=== PATIENT | female | born 1940 | race Two or more races ===

== ENCOUNTER 2020-01-06 13:50 | Inpatient (IN) | payer OTHER ==
[2020-01-06] VITALS (18 sets, daily range): BP systolic 111–147; BP diastolic 55–91
[~2020-01-06] VITALS: Ht 30.5 cm; Wt 118.4 kg
--- NOTE | 2020-01-06 13:44 | NUR ---
"stemi" pt direct transfer to [facility] received pt from [facility] transport. pt on monitor and O2, no IV drips patient denies pain and/or discomfort. no signs of apparent distress, denies n/v. pt transferred to cathlab table without incident.
[2020-01-06] MEDS ORDERED: LIDOCAINE 2%HCL (LOCAL ANESTH.) INJ 20ML MDV ONE (13:53)
[2020-01-06] MEDS ORDERED: IODIXANOL 320MG/ML 100ML BTL IV ONE (13:53)
[2020-01-06] MEDS ORDERED: ADENOSINE 6 MG/2 ML INJ IV ONE (14:00)
[2020-01-06] MEDS ORDERED: ANGIOMAX 250 MG VIAL IV ONE ×2 (14:00→14:59)
[2020-01-06] MEDS ORDERED: MIDAZOLAM HCL 1MG/1ML-2 ML VIAL ONE (14:00)
[2020-01-06] MEDS ORDERED: fentaNYL CITRATE 100 MCG/2 ML VL ONE (14:00)
[2020-01-06] MEDS ORDERED: SODIUM CHL 0.9% 50 ML ONE ×2 (14:00→14:59)
[2020-01-06] MEDS ORDERED: VERAPAMIL 2.5MG/ML INJ 2ML VIAL IV ONE (14:01)
[2020-01-06] MEDS ORDERED: ATROPINE SULF 1 MG/10ml SYR ONE (14:01)
[2020-01-06] MEDS ORDERED: EPINEPHrine HCL 1 MG/10 ML SYRG ONE (14:01)
[2020-01-06] MEDS ORDERED: EPTIFIBATIDE INJ (2MG/ML) 10ML VIAL IV ONE (14:38)
[2020-01-06] MEDS ORDERED: niCARdipine 25 MG/10 ML VIAL IV ONE (14:52)
[2020-01-06] MEDS ORDERED: SODIUM CHLORIDE 0.9% 1,000 ML IV SCH (16:15)
[2020-01-06] MEDS ORDERED: ONDANSETRON HCL 4 MG/2 ML VIAL ONE (16:47)
[2020-01-06] MEDS ORDERED: NOREPINEPHRINE 8 MG/250ML KIT 250 ML IV ONE (17:07)
--- NOTE | 2020-01-06 17:33 | NUR ---
ICU pt S/P Cardiac Cath Report received from [facility]. DEVON BOLDEN brought to bed following Cardiac catheterization, on quality assurance monitor chassis and portable oxygen. Patient transferred to ICU bed, connected to ICU monitoring and oxygen. VACS BAND IN PLACE TO RT WRIST. Site assessed for any bleeding, redness or swelling. All questions and concerns addressed, patient verbalized understanding of all education and instruction. See notes for any further. NOTE: PATIENT C/O NAUSEA - VOMITED SM AMT BLACK LIQ. C/O NON RADIATING CHEST PAIN 06/30 - PLACED CALL TO DR ORELLANA RE: ADMISSION ORDERS.
--- NOTE | 2020-01-06 17:50 | NUR ---
DR ORELLANA VISITS AND EXAMINES PATIENT - WRITTEN ORDERS RECEIVED.
[2020-01-06] MEDS ORDERED: MORPHINE SULF INJ 2 MG/ML SYRINGE 1ML IV PRN ×2 (18:00→21:15)
--- NOTE | 2020-01-06 18:05 | NUR ---
WRITTEN ORDERS ENTERED. PATIENT C/O CHEST PAIN 06/30 WITH SOB. PATIENT SAO2 99% ON 4L O2. LUNGS CLEAR BILAT PATIENT'S SON AND GRAND DAUGHTER AT BEDSIDE AT BEDSIDE INTERPRETING PATIENT PASHTO SPEAKING ONLY.
--- NOTE | 2020-01-06 18:20 | NUR ---
PATIENT STATES CHEST PAIN IS RELIEVED. NO FURTHER SOB NOTED. PATIENT HAD 150 ML BLACK EMESIS - DR ORELLANA NOTIFIED - ORDERS RECEIVED FOR GI CONSULT, MED FOR NAUSEA ALREADY IN PLACE.
[2020-01-06] MEDS: MORPHINE SULF INJ 2 MG/ML SYRINGE 1ML IV PRN (18:25)
[2020-01-06] MEDS: NOREPINEPHRINE 8 MG/250ML KIT 250 ML IV SCH (18:25)
--- NOTE | 2020-01-06 18:54 | NUR ---
6 BEAT RUN VT NOTED - PATIENT DENIES CHEST PAIN, BP 120'S. WILL CONTINUE TO MONITOR.
[2020-01-06] MEDS ORDERED: FUROSEMIDE 40 MG/4 ML VIAL IV ONE (19:00)
[2020-01-06 19:01] LABS: Basophils # (auto) 0.1 uL; Basophils % (auto) 0.4 % (0.0-2.0); Eosinophils # (auto) 0 uL; Eosinophils % (auto) 0.2 % (0.0-7.0); Hematocrit 48.2 % (36.0-46.0); Hemoglobin 15.8 g/dL (12.2-16.2); Lymphocytes # (auto) 1.3 uL; Lymphocytes % (auto) 9.4 % (10.0-50.0); Mean Corpuscular Hemoglobin 29.5 pg (28.0-32.0); Mean Corpuscular Hgb Conc. 32.8 g/dL (32.0-36.0); Mean Corpuscular Volume 89.9 fL (80.0-100.0); Monocytes # (auto) 0.4 uL; Monocytes % (auto) 2.9 % (0.0-12.0); Neutrophils # (auto) 12.3 uL; Neutrophils % (auto) 87.1 % (37.0-80.0); Nucleated Red Blood Cells % 0.2 %; Platelet Count (auto) 223 10^3/uL (140-450); Red Blood Cells 5.36 10^6/uL (4.0-5.20); Red Cell Distribution Width 14.4 % (11.8-14.3); White Blood Cell 14.1 10^3/uL (4.4-10.8)
[2020-01-06 19:15] LABS: BUN/Creatinine Ratio 16.5; Calcium 8.5 mg/dL (8.5-10.1)
--- NOTE | 2020-01-06 19:15 | NUR ---
opening note received report form day shift rn. patient s/p left heart cath. aox4 Pashto speaking. NSR in 90's, blood pressure 137/68 on 10mcg of levophed. right radial incision site free of hematoma, air pressure wrist safe guard removed. right femoral incision site cdi. patient having red emesis and chest pain. md gaby costello aware of chest pain and emesis. son at bedside. discussed poc with son and patient. bed set to lowest level, instructed patient now to use call light if in need of assistance.
--- NOTE | 2020-01-06 19:30 | NUR ---
Sharma catheter insertion Patient educated on catheter and reason for insertion. All questions answered. Sharma catheter 16 guage [place] Islander inserted with clean sterile technique. Patient tolerated well. Rehana-care provided. Partial linens changed.
--- NOTE | 2020-01-06 20:05 | NUR ---
gaby costello at bedside informed that patient is having red emesis, and chest pain. no new orders received.
--- NOTE | 2020-01-06 20:10 | NUR ---
md s pated at bedside updated on patient status. new orders received.
[2020-01-06] MEDS: ONDANSETRON HCL 4 MG/2 ML VIAL IV PRN (20:39)
[2020-01-06] MEDS: cefTRIAXone 1GM/50ML D5W 50 ML IV SCH (20:41)
[2020-01-06] MEDS ORDERED: NITROGLYCERIN 0.4 MG SL TAB SL PRN (21:15)
[2020-01-06] MEDS ORDERED: DEXTROSE (50%) 50ML SYRG IV PRN (21:15)
[2020-01-06] MEDS: TICAGRELOR 90 MG TAB PO SCH (21:17)
[2020-01-06] MEDS: SUCRALFATE 1 GM/10 ML ORAL SUSP PO SCH (21:18)
[2020-01-06] MEDS: ATORVASTATIN 20 MG TAB PO SCH (21:18)
[2020-01-07] VITALS (43 sets, daily range): BP systolic 100–145; BP diastolic 55–88
[2020-01-07] MEDS ORDERED: FUROSEMIDE INJECTION 10 ML ONE (00:11)
[2020-01-07] MEDS: FUROSEMIDE INJECTION 100 MG in D5W 5% 100 ML IV SCH (00:14)
[2020-01-07] MEDS: PANTOPRAZOLE 40mg/50ML NS AE 50 ML IV SCH ×4 (00:14→11:34)
[2020-01-07] MEDS: InsuLIN REG 1unit/0.01ml Soln (100units/ml) SC SCH ×5 (00:32→21:39)
[2020-01-07 02:09] LABS: Urine WBC None Seen /hpf (0 - 5)
[2020-01-07 02:34] LABS: Urine Bacteria FEW /hpf (None Seen); Urine Blood 3+ /uL (Negative); Urine Specific Gravity > 1.050 (1.001-1.035)
[2020-01-07 04:00] LABS: Basophils # (auto) 0 uL; Eosinophils # (auto) 0 uL; Hemoglobin 14.3 g/dL (12.2-16.2); Lymphocytes # (auto) 0.5 uL; Lymphocytes % (auto) 3.6 % (10.0-50.0); Mean Corpuscular Hgb Conc. 31.9 g/dL (32.0-36.0); Mean Corpuscular Volume 90.8 fL (80.0-100.0); Monocytes # (auto) 0.6 uL; Monocytes % (auto) 4.7 % (0.0-12.0); Neutrophils # (auto) 12.1 uL; Neutrophils % (auto) 91.7 % (37.0-80.0); Platelet Count (auto) 210 10^3/uL (140-450); Red Blood Cells 4.95 10^6/uL (4.0-5.20); Red Cell Distribution Width 14.6 % (11.8-14.3); White Blood Cell 13.2 10^3/uL (4.4-10.8)
--- NOTE | 2020-01-07 04:00 | NUR ---
BM CLEANED USED BEDPAN, PATIENT HAD ONE LARGE BROWN/BLACK SOLID BM. SKIN REASSESSED AND NO NEW BREAK DOWN NOTED
[2020-01-07 04:37] LABS: Calcium 8.6 mg/dL (8.5-10.1); Potassium 4.8 mmol/L (3.5-5.1)
[2020-01-07 04:39] LABS: BUN/Creatinine Ratio 12.7
[2020-01-07] MEDS: ACCU-CHEK COMFORT CURVE STRIP VI SCH ×5 (05:48→21:39)
[2020-01-07] MEDS ORDERED: FUROSEMIDE 20 MG/2 ML VIAL IV SCH (06:00)
[2020-01-07] MEDS ORDERED: FUROSEMIDE 40 MG/4 ML VIAL IV SCH (06:00)
[2020-01-07] MEDS: SUCRALFATE 1 GM/10 ML ORAL SUSP PO SCH ×4 (06:16→21:42)
[2020-01-07] MEDS ORDERED: DEXTROSE (50%) 50ML SYRG IV PRN (08:00)
[2020-01-07] MEDS: ONDANSETRON HCL 4 MG/2 ML VIAL IV PRN ×3 (08:39→18:55)
[2020-01-07] MEDS: cefTRIAXone 1GM/50ML D5W 50 ML IV SCH (08:43)
[2020-01-07] MEDS ORDERED: LOSA-39 PO (09:37)
[2020-01-07] MEDS ORDERED: FURO1TAB33 PO (09:37)
[2020-01-07] MEDS ORDERED: TRAM-297 PO (09:37)
[2020-01-07] MEDS ORDERED: CAR3125T PO (09:37)
[2020-01-07] MEDS ORDERED: PANTOPRAZOLE 40 MG/10 ML VIAL INJ IV SCH (10:00)
--- NOTE | 2020-01-07 10:20 | NUR ---
REPORT GIVEN TO LORETTA RN IN [facility]. PATIENT AND FAMILY INFORMED OF TRANSFER TO [facility]- VERBALIZED UNDERSTANDING.
[2020-01-07] MEDS: TICAGRELOR 90 MG TAB PO SCH ×2 (10:29→21:42)
[2020-01-07] MEDS: ASPirin-EC 81 mg tab PO SCH (10:29)
[2020-01-07] MEDS: METOPROLOL TARTRATE 25 MG TAB PO SCH (10:32)
--- NOTE | 2020-01-07 10:40 | NUR ---
PATIENT TRANSPORTED TO ROOM 261 PER BED WITH PORTABLE O2 AND NEUROSURGERY SPINE PHYSICIAN WITH BELONGINGS. PATIENT'S FAMILY AT BEDSIDE.
--- NOTE | 2020-01-07 12:30 | NUR ---
PATIENT ONLY ATE A FEW BITES OF LUNCH,
--- NOTE | 2020-01-07 12:45 | NUR ---
ZOFRAN GIVEN FOR NAUSEA
--- NOTE | 2020-01-07 13:55 | NUR ---
DR CEE IN TO SEE THE PATIENT AND STATED TO MAKE THE PATIENT NPO AND HE IS GOING TO MONITOR HER AND SEE IF HE NEEDS TO DO ANY PROCEDURE
[2020-01-07 14:22] LABS: INR 1.12 (0.9-1.15)
--- NOTE | 2020-01-07 15:00 | NUR ---
SITTING UP IN BED WITH EYES CLOSED
--- NOTE | 2020-01-07 16:05 | NUR ---
CALLED AND SPOKE TO HER ON THE PHONE
--- NOTE | 2020-01-07 16:39 | NUR ---
[facility] IN TO VISIT WITH THE PATIENT
--- NOTE | 2020-01-07 17:30 | NUR ---
PROTONIX DRIP STOPPED AFTER BAG THAT WAS HANGING WAS FINISHED, PER DR CEE'S ORDER
--- NOTE | 2020-01-07 17:37 | NUR ---
INTO SEETHE PATIENT
[2020-01-07] MEDS: NOREPINEPHRINE 8 MG/250ML KIT 250 ML IV SCH (18:09)
--- NOTE | 2020-01-07 18:13 | NUR ---
FAMILY WITH PATIENT WHO IS SITTING UP IN THE BED, O2 AT 4L BY N/C, BALBUENA TO GRAVITY, A/O TIMES 4, SPEAKS PARAGUAYAN BUT UNDERSTAND A LITTLE MONGOLIAN, SALINE LOCK TO THE RFA 20G FLUSHED AND PATENT, LASIX INFUSING INTO THE LEFT SHOULDER AT 10ML/HR BY THE IV PUMP, NOT COMPLAINING OF PAIN AT THIS TIME, WILL CONTINUE TO MONITOR AND GIVE REPORT TO THE NEXT SHIFT
--- NOTE | 2020-01-07 18:55 | NUR ---
MEDICATED WITH ZOFRAN FOR NAUSEATED
--- NOTE | 2020-01-07 19:50 | NUR ---
OPENING SHIFT NOTE PATIENT RESTING IN BED, AWAKE AND ALERT AND ORIENTED, HUNGARIAN SPEAKING. PT REQUESTING TO BE DIALED TO HER YONAS OVER THE PHONE, PT WAS ABLE TO SPEAK TO HER . COMPLETE PHYSICAL ASSESSMENT DONE: SEE INTERVENTIONS. PT TURNED AND REPOSITIONED AT THIS TIME. LASIX GTT INFUSING TO LEFT SHOULDER IV: SEE IV SPREADSHEET. NO COMPLAINTS OF NAUSEA. PT COMPLAINING OF DRY NOSE, HUMIDIFIER TO OXYGEN PLACED. INSTRUCTED TO CALL PRN AND POC, PT VERBALIZES UNDERSTANDING.CONTINUE MONITORING.
[2020-01-07] MEDS: PANTOPRAZOLE 40 MG/10 ML VIAL INJ IV SCH (21:41)
[2020-01-07] MEDS: ATORVASTATIN 20 MG TAB PO SCH (21:42)
--- NOTE | 2020-01-07 21:50 | NUR ---
FAMILY LEFT BEDSIDE
[2020-01-08] VITALS: BP 116/70
--- NOTE | 2020-01-08 01:10 | NUR ---
SPOKE WITH PT'S GRANDDAUGHTER OVER THE PHONE. INFORMED GRANDDAUGHTER I AM UNABLE TO GIVE MEDICAL INFORMATION OVER THE PHONE DUE TO PT NOT HAVING A PASSWORD SET UP. EDUCATED ON SETTING UP INFORMATION PW.GRANDDAUGHTER MADE AWARE THAT PT IS SLEEPING AND VITAL SIGNS ARE STABLE. PER PT'S GRANDDAUGHTER SHE WILL HAVE FAMILY SET UP INFORMATION PASSWORD IN THE MORNING.
[2020-01-08] MEDS: FUROSEMIDE INJECTION 100 MG in D5W 5% 100 ML IV SCH (03:38)
[2020-01-08 04:00] VITALS: BP 122/63
--- NOTE | 2020-01-08 04:43 | NUR ---
AM CARE COMPLETE BED BATH AND BALBUENA CARE PROVIDED, SKIN REASSESSED AT THIS TIME FOR ANY CHANGES. UNDER BREAST BILATERAL AREA MOIST WITH MACERATION, CLEANSED PATTED DRY AND PILLOW CASE PLACED UNDER AREA TO KEEP DRY. UNDER ABD FOLD MOIST WITH MACERATION, CLEANSED, PATTED DRY AND PILLOW CASE PLACED TO KEEP AREA DRY. NO OTHER SKIN CHANGES NOTED. PARTIAL LINEN CHANGE DONE, NEW GOWN PLACED ON PATIENT AND REPOSITIONED IN BED FOR COMFORT. CALL LIGHT GIVEN TO PATIENT, INSTRUCTED TO CALL PRN. CONTINUE MONITORING/POC.
[2020-01-08 04:59] LABS: Basophils # (auto) 0.1 uL; Basophils % (auto) 0.8 % (0.0-2.0); Eosinophils # (auto) 0 uL; Eosinophils % (auto) 0.1 % (0.0-7.0); Hematocrit 37.7 % (36.0-46.0); Hemoglobin 12.8 g/dL (12.2-16.2); Lymphocytes # (auto) 0.9 uL; Lymphocytes % (auto) 8.6 % (10.0-50.0); Mean Corpuscular Hemoglobin 30.4 pg (28.0-32.0); Mean Corpuscular Volume 89.4 fL (80.0-100.0); Monocytes # (auto) 0.6 uL; Monocytes % (auto) 6.2 % (0.0-12.0); Neutrophils # (auto) 8.7 uL; Neutrophils % (auto) 84.3 % (37.0-80.0); Platelet Count (auto) 150 10^3/uL (140-450); Red Blood Cells 4.22 10^6/uL (4.0-5.20); Red Cell Distribution Width 14.9 % (11.8-14.3); White Blood Cell 10.3 10^3/uL (4.4-10.8)
[2020-01-08] MEDS: ACCU-CHEK COMFORT CURVE STRIP VI SCH ×5 (06:38→23:39)
[2020-01-08] MEDS: InsuLIN REG 1unit/0.01ml Soln (100units/ml) SC SCH ×5 (06:38→23:39)
[2020-01-08] MEDS: SUCRALFATE 1 GM/10 ML ORAL SUSP PO SCH ×4 (06:38→22:42)
--- NOTE | 2020-01-08 06:49 | NUR ---
END OF SHIFT NOTE PT RESTING IN BED AWAKE AND ALERT AND ORIENTED. PT REMAINED STABLE THROUGH THE NIGHT, CONTINUES TO BE ON LASIX GTT: SEE IV SPREADSHEET. WILL CONTINUE MONITORING AND ENDORSE CARE TO DAY SHIFT RN.
[2020-01-08 06:59] LABS: BUN/Creatinine Ratio 15.7; Calcium 8.4 mg/dL (8.5-10.1); Potassium 3.8 mmol/L (3.5-5.1)
--- NOTE | 2020-01-08 07:30 | NUR ---
Opening Shift Note Assumed care of patient, laying in bed with eyes closed, arousable to voice, primary Kyrgyz speaking but able to communicate in [place]an, oriented. No S/S of distress/SOB or pain. Patient saturation 91% at 3 LPM oxygen via nasal cannula. See interventions for complete assessment. Bed lcoked on low position, side rails up x2, bed alarms on at all times, call ribeiro within reach, instructed on POC and to call for assist PRN, will continue to monitor for changes Q1hr and PRN.
[2020-01-08 07:49] VITALS: BP 106/63
--- NOTE | 2020-01-08 09:00 | NUR ---
Patient's son Nicola at bedside, updated on patient's status and POC. Son verbalized understanding. All questions and concerns addressed.
[2020-01-08] MEDS: TICAGRELOR 90 MG TAB PO SCH ×2 (09:36→22:42)
[2020-01-08] MEDS: cefTRIAXone 1GM/50ML D5W 50 ML IV SCH (09:36)
[2020-01-08] MEDS: PANTOPRAZOLE 40 MG/10 ML VIAL INJ IV SCH (09:36)
[2020-01-08] MEDS: ASPirin-EC 81 mg tab PO SCH (09:36)
[2020-01-08] MEDS: METOPROLOL TARTRATE 25 MG TAB PO SCH (09:37)
--- NOTE | 2020-01-08 09:50 | NUR ---
Dr Grigsby at bedside, updated on patient's status. Patient seen and examined. Received verbal order to start patient on Cardiac diet, discontinue Lasix drip, start patient on Lasix PO and transfer patient to Tele floor. Verbal orders read back and verified. Will carry out.
--- NOTE | 2020-01-08 10:00 | NUR ---
IV on RT forearm tender, discontinued with sterile technique, catheter fully intact. Pressure dressing applied to site. Patient tolerated procedure well.
[2020-01-08] MEDS ORDERED: DEXTROSE (50%) 50ML SYRG IV PRN (11:45)
--- NOTE | 2020-01-08 11:50 | NUR ---
Patient's Marc at bedside, updated on patient's status and POC. verbalized understanding. All questions and concerns addressed.
[2020-01-08 11:57] VITALS: BP 117/69
[2020-01-08] MEDS: FUROSEMIDE 20 MG/2 ML VIAL IV SCH ×2 (14:26→22:42)
--- NOTE | 2020-01-08 14:52 | NUR ---
Patient is out of bed to bedside chair with Taran REGAN. Fall precautions in place. Patient tolerated well.
[2020-01-08 15:55] VITALS: BP 120/80
--- NOTE | 2020-01-08 15:56 | NUR ---
Assessment Pt is a 79 yr old alert and oriented female. Pt lives with her Marc, who is her contact at [phone]. Prior to admit, pt used a cane to assist with ambulation and was independent with ADL's. Pt's primary is Dr. Barnes, has no AD, and receives [employer] income. Pt had no HH prior to admit, nor was she on dialysis. Pt will d/c home once medically stable. Pt is understanding and agreeable for DC plan. Pt's will transport her home. No needs assessed. Addendum: 01/08/20 at 1559 by VERA BRANTLEY Amended: Links added.
--- NOTE | 2020-01-08 16:32 | NUR ---
[facility] pt transferred to floor DEVON BOLDEN transfered to Tele floor via hospital bed on rn cardiac and portable 02. All patient medications and personal belongings including a pair of earrings, yellow metal and black cellphone transferred with patient to receiving floor. Patient care transfered to Mamie CORDERO.
--- NOTE | 2020-01-08 16:40 | NUR ---
Received patient via bed from [facility]. Patient awake, oriented x4, on O2 at 3 LPM via nasal cannula with humidifier, New Zealander speaking. Bed alarm on. Family member at bedside.
--- NOTE | 2020-01-08 19:30 | NUR ---
Opening Shift Note Assumed care of patient, awake and alert. No S/S of distress/SOB. Instructed on POC and to call for assist PRN, will continue to monitor for changes Q1hr and PRN.
--- NOTE | 2020-01-08 20:15 | NUR ---
Patient is upset. Explained to the patient regarding Neurology consult. Administered pain medication earlier and offered more warm compress or cold packs if needed. Will continue to monitor. Addendum: 01/08/20 at 2243 by Crow De La O RN Wrong patient
[2020-01-08 22:00] VITALS: BP 113/67
[2020-01-08] MEDS: ATORVASTATIN 20 MG TAB PO SCH (22:42)
[2020-01-08] MEDS: PANTOPRAZOLE 40 MG TAB PO SCH (22:43)
[2020-01-09 04:48] VITALS: BP 124/79
[2020-01-09] MEDS: InsuLIN REG 1unit/0.01ml Soln (100units/ml) SC SCH ×3 (05:51→17:28)
[2020-01-09] MEDS: ACCU-CHEK COMFORT CURVE STRIP VI SCH ×3 (05:51→17:28)
[2020-01-09] MEDS: FUROSEMIDE 20 MG/2 ML VIAL IV SCH ×3 (05:51→22:50)
[2020-01-09] MEDS: SUCRALFATE 1 GM/10 ML ORAL SUSP PO SCH ×4 (05:52→21:49)
[2020-01-09 06:40] LABS: Basophils # (auto) 0 uL; Basophils % (auto) 0.3 % (0.0-2.0); Eosinophils # (auto) 0 uL; Eosinophils % (auto) 0.4 % (0.0-7.0); Hematocrit 39.3 % (36.0-46.0); Hemoglobin 13.1 g/dL (12.2-16.2); Lymphocytes # (auto) 0.8 uL; Lymphocytes % (auto) 8.4 % (10.0-50.0); Mean Corpuscular Hemoglobin 30.2 pg (28.0-32.0); Mean Corpuscular Hgb Conc. 33.4 g/dL (32.0-36.0); Mean Corpuscular Volume 90.6 fL (80.0-100.0); Monocytes # (auto) 0.6 uL; Monocytes % (auto) 5.8 % (0.0-12.0); Neutrophils # (auto) 8.6 uL; Neutrophils % (auto) 85.1 % (37.0-80.0); Nucleated Red Blood Cells % 0.1 %; Platelet Count (auto) 153 10^3/uL (140-450); Red Blood Cells 4.34 10^6/uL (4.0-5.20); Red Cell Distribution Width 14.4 % (11.8-14.3); White Blood Cell 10.1 10^3/uL (4.4-10.8)
[2020-01-09 06:45] LABS: BUN/Creatinine Ratio 20.7; Calcium 8.9 mg/dL (8.5-10.1); Potassium 3.3 mmol/L (3.5-5.1)
[2020-01-09 07:02] LABS: INR 1.11 (0.9-1.15)
[2020-01-09 08:08] VITALS: BP 124/85
[2020-01-09] MEDS: PANTOPRAZOLE 40 MG TAB PO SCH ×2 (10:06→21:49)
[2020-01-09] MEDS: ASPirin-EC 81 mg tab PO SCH (10:06)
[2020-01-09] MEDS: TICAGRELOR 90 MG TAB PO SCH ×2 (10:06→21:50)
[2020-01-09] MEDS: METOPROLOL TARTRATE 25 MG TAB PO SCH (10:07)
[2020-01-09] MEDS: cefTRIAXone 1GM/50ML D5W 50 ML IV SCH (10:07)
[2020-01-09 13:00] VITALS: BP 125/72
[2020-01-09 16:46] VITALS: BP 140/76
--- NOTE | 2020-01-09 19:40 | NUR ---
Opening Shift Note Assumed care of patient, awake and alert oriented x4, family at the bedside. No S/S of distress/SOB noted. Instructed on POC and to call for assist PRN. Bed is in lowest locked position with bed rails up x2 and call light is within reach of the patient. Bed alarm is armed.
--- NOTE | 2020-01-09 20:08 | NUR ---
MD ORELLANA IN TO SEE PATIENT: MD ORELLANA IN TO SEE PATIENT. NEW ORDERS RECEIVED. Addendum: 01/09/20 at 2054 by Gissell Browning RN RN Bill Orellana in to see the patient
[2020-01-09] MEDS ORDERED: POTASSIUM CHL 20 Meq TABLET PO ONE ×2 (20:15→21:15)
[2020-01-09] MEDS: ATORVASTATIN 20 MG TAB PO SCH (21:49)
[2020-01-09 22:00] VITALS: BP 122/66
[2020-01-09] MEDS: MORPHINE SULF INJ 2 MG/ML SYRINGE 1ML IV PRN (22:50)
--- NOTE | 2020-01-10 02:38 | NUR ---
Patient refuses to sleep in bed: Patient refusing to sleep in bed after education of the risks and dangers of sleeping in chair. Patient states she sleeps in a chair at home and that is the only way she can sleep. Had a trouble tracer for Rwandan at the bedside. Patient insists to sleep in chair after education.
[2020-01-10] MEDS: MORPHINE SULF INJ 2 MG/ML SYRINGE 1ML IV PRN (02:50)
[2020-01-10 05:00] VITALS: BP 132/76
[2020-01-10] MEDS: InsuLIN REG 1unit/0.01ml Soln (100units/ml) SC SCH ×4 (05:55→17:32)
[2020-01-10] MEDS: ACCU-CHEK COMFORT CURVE STRIP VI SCH ×4 (05:55→17:31)
[2020-01-10] MEDS: SUCRALFATE 1 GM/10 ML ORAL SUSP PO SCH ×4 (06:16→21:40)
[2020-01-10] MEDS: FUROSEMIDE 20 MG/2 ML VIAL IV SCH ×3 (06:16→21:39)
--- NOTE | 2020-01-10 07:30 | NUR ---
Opening Shift Note Assumed care of patient, awake and alert oriented x4. No S/S of distress/SOB noted. Instructed on POC and to call for assistance PRN. Bed is in lowest locked position with bed rails up x2 and call light is within reach of the patient.
[2020-01-10 08:54] VITALS: BP 122/89
[2020-01-10] MEDS: cefTRIAXone 1GM/50ML D5W 50 ML IV SCH (08:57)
[2020-01-10] MEDS: TICAGRELOR 90 MG TAB PO SCH ×2 (08:59→21:40)
[2020-01-10] MEDS: PANTOPRAZOLE 40 MG TAB PO SCH ×2 (08:59→21:41)
[2020-01-10] MEDS: METOPROLOL TARTRATE 25 MG TAB PO SCH (08:59)
[2020-01-10] MEDS: ASPirin-EC 81 mg tab PO SCH (08:59)
--- NOTE | 2020-01-10 10:50 | NUR ---
1050 01/10/20 Faxed transfer order and Notice Regarding Post Stabilization (document scanned into [employer]) to [facility]. Faxed current MD progress notes, vitals, labs and medication list to [facility].
[2020-01-10 13:42] VITALS: BP 111/62
[2020-01-10] MEDS: LACTULOSE 20Gm/30ML SOLN PO PRN (15:05)
--- NOTE | 2020-01-10 15:49 | NUR ---
1545 01/10/20 Contacted [facility] [employer] Kim[facility] and requested that authorization be provided for continued stay. Volunteer Manager [facility] is aware of the transfer order. I spoke with patient's nurse Christine who told me patient only wants to be transferred to [facility] because it is closer. Per Kimi, since patient is a [facility] Senior and is more than 30 miles from the nearest [facility] facility, she has the right to stay here. Per Kimi there are no beds available at [facility] today-she will fax over authorization extension good until 01/11/20 1000. I relayed this information to nurse King.
[2020-01-10 16:47] VITALS: BP 116/82
--- NOTE | 2020-01-10 19:23 | NUR ---
SPOKE WITH PATIENTS YONAS AT [facility]. PER PLEASE CALL HIM ONLY WITH REGARDS TO ANY INFORMATION ABOUT THE PATIENT.
--- NOTE | 2020-01-10 19:30 | NUR ---
OPENING NOTE ASSUMED CARE OF PATIENT. ALERT AND ORIENTED. DENIES ANY PAIN. NO S/S OF SOB/DISTRESS NOTED. SAFETY PRECAUTIONS IN PLACE. BED SET TO LOWEST POSITION/LOCKED, BEDSIDE RAILS UP X2, BED ALARM ON, CALL LIGHT WITHIN REACH. INSTRUCTED PATIENT TO CALL FOR ASSISTANCE. UPDATE ON POC. WILL CONTINUE TO MONITOR Q1HR AND PRN.
[2020-01-10] MEDS: ATORVASTATIN 20 MG TAB PO SCH (21:41)
[2020-01-10 22:00] VITALS: BP 138/78
--- NOTE | 2020-01-11 03:15 | NUR ---
Opening Shift Note Assumed care of patient, patient asleep verbally awake and alert oriented x4. No S/S of distress/SOB noted. Instructed on POC and to call for assistance PRN. Bed is in lowest locked position with bed rails up x2 and call light is within reach of the patient.
--- NOTE | 2020-01-11 04:59 | NUR ---
rounded on patient noted pt sitting on bedside chair, blowing nose, noted blood on patient hands and on tissues in bag next to patient, per patient she stated she has been having bloody nose since last night on and off, stated "my nostrils are always dry i took off the oxygen Im okay i can breath Im not short of breath" instructed patient to hold pressure on nose and to call for assist if she needs it, will check on patient.
[2020-01-11 05:00] VITALS: BP 131/82
[2020-01-11] MEDS: ACCU-CHEK COMFORT CURVE STRIP VI SCH ×4 (06:00→17:05)
[2020-01-11] MEDS: InsuLIN REG 1unit/0.01ml Soln (100units/ml) SC SCH ×4 (06:00→17:05)
[2020-01-11] MEDS: FUROSEMIDE 20 MG/2 ML VIAL IV SCH ×3 (06:07→22:29)
[2020-01-11] MEDS: SUCRALFATE 1 GM/10 ML ORAL SUSP PO SCH ×4 (06:08→22:28)
--- NOTE | 2020-01-11 08:40 | NUR ---
left message for md costello regarding patient bloody nose
[2020-01-11 09:00] VITALS: BP 117/80
[2020-01-11] MEDS: cefTRIAXone 1GM/50ML D5W 50 ML IV SCH (09:21)
[2020-01-11] MEDS: METOPROLOL TARTRATE 25 MG TAB PO SCH (09:21)
[2020-01-11] MEDS: ASPirin-EC 81 mg tab PO SCH (09:21)
[2020-01-11] MEDS: PANTOPRAZOLE 40 MG TAB PO SCH ×2 (09:22→22:29)
[2020-01-11] MEDS: TICAGRELOR 90 MG TAB PO SCH ×2 (09:22→22:29)
--- NOTE | 2020-01-11 10:44 | NUR ---
Called [facility] regarding pt wanting to speak to someone regarding there insurance per office staff he stepped out and that should be the rn case mgr, called and paged yoly sierra awaiting call back
--- NOTE | 2020-01-11 11:28 | NUR ---
patient left hand iv noted leaking no pain or swelling noted will remove and start new iv
[2020-01-11 13:00] VITALS: BP 125/68
--- NOTE | 2020-01-11 13:30 | NUR ---
attempted new peripheral iv x2 failed x2 attempts notified another nurse to attempt iv
--- NOTE | 2020-01-11 14:03 | NUR ---
IV insertion IV access obtained, via clean sterile technique by inserting 22 gauge catheter at after attempt(s). IV secured properly. No trauma to site. Patient tolerated well. NOTE:
--- NOTE | 2020-01-11 16:14 | NUR ---
7498 01/11/20 Contacted [facility] [employer] to request authorization to be provided for patient's continued stay. Per Kimi there are no beds available at [facility], inpatient authorization is extended until 01/12/20 1000. Faxed progress notes from 01/10/20 to [facility] per her request.
[2020-01-11 16:54] VITALS: BP 115/75
--- NOTE | 2020-01-11 19:30 | NUR ---
received pt from day rn poc reviewed
[2020-01-11 22:00] VITALS: BP 121/60
[2020-01-11] MEDS: ATORVASTATIN 20 MG TAB PO SCH (22:29)
--- NOTE | 2020-01-11 23:04 | NUR ---
pt sitting up in chair resp even and unlabored, pt refused to have her blood glucose checked
--- NOTE | 2020-01-12 00:59 | NUR ---
no change resp even and unlabored, call light within reach
--- NOTE | 2020-01-12 04:07 | NUR ---
awoke assist back to bed resp even and unlabored, call light within reach
[2020-01-12 05:00] VITALS: BP 116/71
[2020-01-12] MEDS: ACCU-CHEK COMFORT CURVE STRIP VI SCH ×4 (06:00→18:00)
[2020-01-12] MEDS: InsuLIN REG 1unit/0.01ml Soln (100units/ml) SC SCH ×4 (06:00→18:00)
[2020-01-12] MEDS: FUROSEMIDE 20 MG/2 ML VIAL IV SCH ×3 (06:41→22:30)
[2020-01-12] MEDS: SUCRALFATE 1 GM/10 ML ORAL SUSP PO SCH ×4 (06:42→22:30)
[2020-01-12] MEDS: LACTULOSE 20Gm/30ML SOLN PO PRN (07:35)
--- NOTE | 2020-01-12 07:35 | NUR ---
Opening Shift Note Assumed care of patient, awake and alert. No S/S of distress/SOB or pain. Instructed on POC and to call for assist PRN, will continue to monitor for changes Q1hr and PRN.
--- NOTE | 2020-01-12 07:39 | NUR ---
REPORT GIVEN TO AM NURSE POC REVIEWED
--- NOTE | 2020-01-12 08:05 | NUR ---
Patient assisted to BSC. Had large soft BM.
[2020-01-12 09:00] VITALS: BP 156/69
[2020-01-12] MEDS: cefTRIAXone 1GM/50ML D5W 50 ML IV SCH (09:51)
[2020-01-12] MEDS: ASPirin-EC 81 mg tab PO SCH (09:51)
[2020-01-12] MEDS: PANTOPRAZOLE 40 MG TAB PO SCH ×2 (09:52→22:29)
[2020-01-12] MEDS: METOPROLOL TARTRATE 25 MG TAB PO SCH (09:52)
--- NOTE | 2020-01-12 10:30 | NUR ---
IV insertion IV access obtained, via clean sterile technique by inserting 22 gauge catheter at left hand after 1 attempt. IV secured properly. No trauma to site. Patient tolerated procedure well. IV started by Bill Haynes RN.
--- NOTE | 2020-01-12 11:45 | NUR ---
Patient refused blood sugar check. Will continue to monitor.
[2020-01-12 13:00] VITALS: BP 123/66
[2020-01-12] MEDS: TICAGRELOR 90 MG TAB PO SCH ×2 (14:15→22:33)
--- NOTE | 2020-01-12 15:56 | NUR ---
NUTRITION ASSESSMENT NOTES Please refer to link notes of nutrition screen form filed under the intervention section of the plan of care for further details. Est. Energy Needs: 9195-8534 kcal (12-15 kcal/kgBW), Est. Protein Needs: 65-71 gms/day (1.0-1.1 gms/kg AdjBW). Will continue to monitor pertinent labs and reassess nutrient need prn Addendum: 01/12/20 at [address] Amended: Links added.
[2020-01-12 17:00] VITALS: BP 113/72
--- NOTE | 2020-01-12 20:00 | NUR ---
Opening Shift Note Assumed care of patient, awake and alert. No S/S of distress/SOB or pain. Patient sitting up in bedside chair. Instructed on POC and to call for assist PRN, will continue to monitor for changes Q1hr and PRN.
[2020-01-12 22:00] VITALS: BP 144/69
[2020-01-12] MEDS: ATORVASTATIN 20 MG TAB PO SCH (22:29)
--- NOTE | 2020-01-12 23:00 | NUR ---
IV insertion IV access obtained, via clean sterile technique by inserting 20 gauge catheter at Right upper arm after 2 attempt(s). IV secured properly. No trauma to site. Patient tolerated procedure well.
[2020-01-13] MEDS: ACCU-CHEK COMFORT CURVE STRIP VI SCH ×5 (00:09→23:25)
[2020-01-13 05:00] VITALS: BP_DIAS 139
[2020-01-13] MEDS: InsuLIN REG 1unit/0.01ml Soln (100units/ml) SC SCH ×5 (06:00→23:25)
[2020-01-13] MEDS: FUROSEMIDE 20 MG/2 ML VIAL IV SCH ×3 (06:11→21:59)
[2020-01-13] MEDS: SUCRALFATE 1 GM/10 ML ORAL SUSP PO SCH ×4 (06:11→21:59)
--- NOTE | 2020-01-13 07:21 | NUR ---
Patient resting comfortably. No distress noted. Report given to AM RN.
--- NOTE | 2020-01-13 07:25 | NUR ---
Opening Shift Note Assumed care of patient, awake and alert. Patient is sitting up in a chair. No S/S of distress/SOB or pain. Instructed on POC and to call for assist PRN, will continue to monitor for changes Q1hr and PRN.
[2020-01-13 09:00] VITALS: BP 131/56
[2020-01-13] MEDS: cefTRIAXone 1GM/50ML D5W 50 ML IV SCH (10:06)
[2020-01-13] MEDS: PANTOPRAZOLE 40 MG TAB PO SCH ×2 (10:06→21:59)
[2020-01-13] MEDS: ASPirin-EC 81 mg tab PO SCH (10:06)
[2020-01-13] MEDS: METOPROLOL TARTRATE 25 MG TAB PO SCH (10:07)
[2020-01-13] MEDS: TICAGRELOR 90 MG TAB PO SCH (10:07)
[2020-01-13 13:00] VITALS: BP 111/63
[2020-01-13 17:00] VITALS: BP 118/65
--- NOTE | 2020-01-13 18:14 | NUR ---
Dr. Cyril rGigsby in to see patient as primary MD. New orders received.
[2020-01-13] MEDS ORDERED: CLOPIDOGREL 300 MG TAB PO ONE (18:15)
[2020-01-13] MEDS ORDERED: CLOPIDOGREL BISULFATE 75 MG TAB ONE (19:19)
--- NOTE | 2020-01-13 19:57 | NUR ---
DISCUSSED WITH PATIENT PLANS FOR DC. PATIENT AWARE OF DISCHARGE BY MD. PER PATIENT, SHE WILL CONTACT TO PICK HER UP IN THE MORNING. DISCHARGE TO BE PROCESSED FOR AM PER MD. WILL CONTINUE TO MONITOR PATIENT.
[2020-01-13] MEDS: ATORVASTATIN 20 MG TAB PO SCH (21:59)
[2020-01-13 22:00] VITALS: BP 111/61
--- NOTE | 2020-01-14 04:37 | NUR ---
PATIENT'S BALBUENA REMOVED PATIENT ENCOURAGED TO CALL WHEN NEEDING TO VOID. WILL CONTINUE TO MONITOR.
[2020-01-14 05:35] VITALS: BP 110/64
[2020-01-14] MEDS: FUROSEMIDE 20 MG/2 ML VIAL IV SCH (05:44)
[2020-01-14] MEDS: InsuLIN REG 1unit/0.01ml Soln (100units/ml) SC SCH (05:44)
[2020-01-14] MEDS: ACCU-CHEK COMFORT CURVE STRIP VI SCH (05:44)
[2020-01-14] MEDS: SUCRALFATE 1 GM/10 ML ORAL SUSP PO SCH (06:25)
--- NOTE | 2020-01-14 07:46 | NUR ---
Opening Shift Note Assumed care of patient, awake and alert. No S/S of distress/SOB or pain reported at this time. Instructed on POC and to call for assist PRN, call light within reach, will continue to monitor for changes Q1hr and PRN.
[2020-01-14] MEDS: cefTRIAXone 1GM/50ML D5W 50 ML IV SCH (09:00)
--- NOTE | 2020-01-14 09:35 | NUR ---
ACTIVITY PT AMBULATING WITH PHYSICAL THERAPIST. USING FWW, PT TOLERATING WELL, NO C/O CP, SOB OR ANY OTHER DISCOMFORT, CONT CARE
[2020-01-14] MEDS ORDERED: CLOPIDOGREL BISULFATE 75 MG TAB PO SCH (10:00)
--- NOTE | 2020-01-14 10:57 | NUR ---
DISCHARGE Discharge instructions given as ordered. Encourage to follow up with PMD as instructed. Appointment made to follow up with DR Zack Grigsby January 24, @ 12:40, phone number and address provided. All questions and concerns addressed. Patient verbalized understanding. Medication reconciliation form completed and copy given to patient. IV removed with catheter intact, pressure dressing applied. Telemetry unit returned to ICU. Patient taken to vehicle via wheelchair with all personal belongings, accompanied by staff and family member. No distress noted at time of departure.
== END 2020-01-14 10:48 | disposition home or self-care (01) | DRG 246 ==
LOC: CATH 1 13:50 → ICU WEST 17:58 → DOU IN ICU 01-07 10:42 → TELE-WESTW 01-08 16:34
PROVIDERS: ADMIT Internal Medicine; ATTEND Specialist
PROC: 027135Z Dilation of Coronary Artery, Two Arteries with Two Drug-eluting Intraluminal Devices, Percutaneous Approach (ICD-10-PCS; principal; 2020-01-06)
PROC: 02C13ZZ Extirpation of Matter from Coronary Artery, Two Arteries, Percutaneous Approach (ICD-10-PCS; 2020-01-06)
PROC: B211YZZ Fluoroscopy of Multiple Coronary Arteries using Other Contrast (ICD-10-PCS; 2020-01-06)
PROC: B241ZZ3 Ultrasonography of Multiple Coronary Arteries, Intravascular (ICD-10-PCS; 2020-01-06)
DX: I21.09 ST elevation (STEMI) myocardial infarction involving other coronary artery of anterior wall (principal); I50.21 Acute systolic (congestive) heart failure; J18.9 Pneumonia, unspecified organism; N17.9 Acute kidney failure, unspecified; K92.2 Gastrointestinal hemorrhage, unspecified; Z68.45 Body mass index [BMI] 70 or greater, adult; E66.9 Obesity, unspecified; K59.00 Constipation, unspecified; I11.0 Hypertensive heart disease with heart failure
CPT/HCPCS: 36415; 36600; 71045; 80048; 81001; 82805; 82962; 83036; 83735; 84443; 84484; 85025; 85610; 87081; 92928; 92929; 92941; 92973; 92978; 92979; 93005; 93454; 97116; 97530; 99152; 99153; C1874; C9113; G0378; J0153; J0696; J1815; J2250; J2405; J7060; Q9967